=== PATIENT | male | born 1995 | race Caucasian/White ===

== ENCOUNTER 2018-09-09 15:56 | Inpatient (IN) | payer OTHER, MEDICAID ==
[~2018-09-09] VITALS: Ht 175.3 cm; Wt 76.2 kg
[2018-09-09] MEDS ORDERED: ZIPRASIDONE MESYLATE 20MG/VIAL IM ONE (17:15)
[2018-09-09 19:04] LABS: BASOPHILS % 0.1 % (0.0-2.0); HEMATOCRIT. 37.5 % (42.0-52.0); HEMOGLOBIN. 13.1 g/dL (14.0-18.0); LYMPHOCYTES % 8.1 % (20.0-50.0); MEAN CORPUSCULAR HEMOGLOBIN 31.5 pg (28.0-32.0); MEAN CORPUSCULAR VOLUME 90.3 fL (80.0-94.0); MEAN PLATELET VOLUME 7.7 fl (7.4-10.4); MONOCYTES % 7.1 % (2.0-8.0); NEUTROPHILS % 84.7 % (40.0-76.0); PLATELET 280 x1000/uL (130-400); RED BLOOD CELL COUNT 4.16 mill/uL (4.7-6.1); RED CELL DISTRIBUTION WIDTH 12.4 % (11.6-14.6)
[2018-09-09 19:10] LABS: CHLORIDE 106 mEq/L (98-107)
[2018-09-09 19:10] LABS: CLARITY URINE CLEAR (CLEAR); COLOR URINE DARK YELLOW (YELLOW); KETONES URINE 1+ (NEGATIVE); LEUKOCYTE ESTERASE URINE NEGATIVE (NEGATIVE); NITRITE URINE NEGATIVE (NEGATIVE); OCCULT BLOOD URINE NEGATIVE (NEGATIVE); PROTEIN URINE 1+ (NEGATIVE); SPECIFIC GRAVITY URINE 1.035 (1.005-1.030)
[2018-09-09 19:18] LABS: ETHANOL BLOOD < 10 mg/dL
[2018-09-09 19:18] LABS: *AMPHETAMINES SCREEN URINE NEGATIVE (NEGATIVE); *BARBITURATES SCREEN URINE NEGATIVE (NEGATIVE); *BENZODIAZEPINES SCREEN URINE NEGATIVE (NEGATIVE); *COCAINE SCREEN URINE NEGATIVE (NEGATIVE)
[2018-09-09 19:19] LABS: CANNABINOID URINE SCREEN PRESUMTIVE POSITIVE (NEGATIVE); METHADONE URINE SCREEN NEGATIVE (NEGATIVE); OPIATES URINE SCREEN NEGATIVE (NEGATIVE); PHENCYCLIDINE URINE SCREEN NEGATIVE (NEGATIVE)
[2018-09-10] MEDS ORDERED: SODIUM CHLORIDE 0.9% 1,000 ML IV ONE ×3 (01:00→04:15)
[2018-09-10] MEDS ORDERED: ACETAMINOPHEN 325MG TABLET PO ONE (01:00)
[2018-09-10] MEDS ORDERED: ACETAMINOPHEN 650MG SUPP PR ONE (02:30)
[2018-09-10] MEDS ORDERED: ACETAMINOPHEN 325MG TABLET PO PRN (09:30)
[2018-09-10 09:33] VITALS: BP 110/69
[2018-09-10] MEDS: LORAZEPAM 2MG/ML CPJ IV PRN ×2 (11:36→20:50)
[2018-09-10 12:00] VITALS: BP 109/80
[2018-09-10] MEDS: DEXT 5%/0.45% NACL 1000ML 1,000 ML IV SCH ×2 (14:27→23:29)
[2018-09-10 16:15] VITALS: BP 99/50
[2018-09-10] MEDS: LEVETIRACETAM 500 MG in SODIUM CHLORIDE 0.9% 100 ML IV SCH (17:32)
[2018-09-10 17:40] LABS: CREATINE KINASE 677 IU/L (39-308)
[2018-09-10 20:00] VITALS: BP 122/73
[2018-09-10] MEDS: ONDANSETRON HCL 4MG/2ML INJ IV PRN (23:28)
[2018-09-11] VITALS: BP 103/49
[2018-09-11 04:00] VITALS: BP 101/62
[2018-09-11] MEDS: ONDANSETRON HCL 4MG/2ML INJ IV PRN (05:48)
[2018-09-11 07:23] LABS: BASOPHILS % 0.7 % (0.0-2.0); EOSINOPHILS % 1.1 % (0.0-5.0); HEMATOCRIT. 36.5 % (42.0-52.0); LYMPHOCYTES % 35.1 % (20.0-50.0); MEAN CORPUSCULAR HEMOGLOBIN 32.4 pg (28.0-32.0); MEAN CORPUSCULAR VOLUME 91.2 fL (80.0-94.0); MEAN PLATELET VOLUME 8.2 fl (7.4-10.4); MONOCYTES % 12.5 % (2.0-8.0); NEUTROPHILS % 50.6 % (40.0-76.0); PLATELET 233 x1000/uL (130-400); RED BLOOD CELL COUNT 4.01 mill/uL (4.7-6.1); RED CELL DISTRIBUTION WIDTH 13.1 % (11.6-14.6)
[2018-09-11 07:28] LABS: CHLORIDE 109 mEq/L (98-107)
[2018-09-11 08:00] VITALS: BP 110/65
[2018-09-11] MEDS: LEVETIRACETAM 500 MG in SODIUM CHLORIDE 0.9% 100 ML IV SCH ×2 (09:05→20:51)
[2018-09-11 11:46] VITALS: BP 115/71
[2018-09-11] MEDS ORDERED: KCL 20MEQ/100ML PREMIX 100 ML IV NR (12:30)
[2018-09-11 16:04] VITALS: BP 108/66
[2018-09-11] MEDS: DEXT 5%/0.45% NACL 1000ML 1,000 ML IV SCH (18:01)
[2018-09-11 20:00] VITALS: BP 101/56
[2018-09-11] MEDS: LORAZEPAM 2MG/ML CPJ IV PRN (23:10)
[2018-09-12] VITALS: BP 109/67
[2018-09-12 04:00] VITALS: BP 105/50
[2018-09-12 05:43] LABS: BASOPHILS % 0.4 % (0.0-2.0); EOSINOPHILS % 0.7 % (0.0-5.0); HEMATOCRIT. 37.8 % (42.0-52.0); HEMOGLOBIN. 13.3 g/dL (14.0-18.0); LYMPHOCYTES % 22.6 % (20.0-50.0); MEAN CORPUSCULAR HEMOGLOBIN 31.9 pg (28.0-32.0); MEAN CORPUSCULAR VOLUME 90.5 fL (80.0-94.0); MEAN PLATELET VOLUME 7.9 fl (7.4-10.4); MONOCYTES % 8.1 % (2.0-8.0); NEUTROPHILS % 68.2 % (40.0-76.0); PLATELET 244 x1000/uL (130-400); RED BLOOD CELL COUNT 4.17 mill/uL (4.7-6.1); RED CELL DISTRIBUTION WIDTH 12.4 % (11.6-14.6)
[2018-09-12 05:50] LABS: CHLORIDE 106 mEq/L (98-107)
[2018-09-12 08:00] VITALS: BP 109/60
[2018-09-12] MEDS: LEVETIRACETAM 500 MG in SODIUM CHLORIDE 0.9% 100 ML IV SCH ×2 (09:47→22:15)
[2018-09-12 12:00] VITALS: BP 112/68
[2018-09-12 16:00] VITALS: BP 124/83
[2018-09-12] MEDS: DEXT 5%/0.45% NACL 1000ML 1,000 ML IV SCH (16:22)
[2018-09-12 20:00] VITALS: BP 120/70
[2018-09-13] VITALS: BP_SYST 118; BP_SYST 99; BP_DIAS 53; BP_DIAS 66
[2018-09-13 04:00] VITALS: BP 112/60
[2018-09-13 07:35] LABS: BASOPHILS % 0.5 % (0.0-2.0); EOSINOPHILS % 2.3 % (0.0-5.0); HEMATOCRIT. 38.5 % (42.0-52.0); HEMOGLOBIN. 13.7 g/dL (14.0-18.0); LYMPHOCYTES % 28.8 % (20.0-50.0); MEAN CORPUSCULAR HEMOGLOBIN 31.8 pg (28.0-32.0); MEAN CORPUSCULAR VOLUME 89.5 fL (80.0-94.0); MEAN PLATELET VOLUME 7.8 fl (7.4-10.4); MONOCYTES % 10.6 % (2.0-8.0); NEUTROPHILS % 57.8 % (40.0-76.0); PLATELET 254 x1000/uL (130-400); RED CELL DISTRIBUTION WIDTH 12.4 % (11.6-14.6)
[2018-09-13 08:00] VITALS: BP_SYST 11; BP_SYST 112; BP_DIAS 64
[2018-09-13] MEDS: LEVETIRACETAM 500 MG in SODIUM CHLORIDE 0.9% 100 ML IV SCH ×2 (09:09→22:33)
[2018-09-13] MEDS: DEXT 5%/0.45% NACL 1000ML 1,000 ML IV SCH ×2 (09:11→22:34)
[2018-09-13 12:00] VITALS: BP 118/71
[2018-09-13 13:00] LABS: CHLORIDE 108 mEq/L (98-107)
[2018-09-13 16:00] VITALS: BP 114/68
[2018-09-13 20:00] VITALS: BP 120/70
[2018-09-14] VITALS: BP 117/64
[2018-09-14 04:00] VITALS: BP 119/58
[2018-09-14] MEDS: DEXT 5%/0.45% NACL 1000ML 1,000 ML IV SCH ×2 (06:36→19:36)
[2018-09-14 08:00] VITALS: BP 129/83
[2018-09-14] MEDS: LEVETIRACETAM 500 MG in SODIUM CHLORIDE 0.9% 100 ML IV SCH ×2 (09:31→21:24)
[2018-09-14 12:00] VITALS: BP 137/73
[2018-09-14 16:35] VITALS: BP 145/83
[2018-09-14] MEDS ORDERED: DEXTROSE 50% WATER 50ML SYRINGE IV NR (16:45)
[2018-09-14] MEDS ORDERED: QUETIAPINE FUMARATE 25MG TABLET PO SCH (17:00)
[2018-09-14] MEDS: QUETIAPINE FUMARATE 25MG TABLET NG SCH (19:36)
[2018-09-14 20:00] VITALS: BP 138/80
[2018-09-15] VITALS (9 sets, daily range): BP systolic 115–143; BP diastolic 27–79
[2018-09-15] MEDS: DEXT 5%/0.45% NACL 1000ML 1,000 ML IV SCH ×2 (06:05→22:11)
[2018-09-15] MEDS: LEVETIRACETAM 500 MG in SODIUM CHLORIDE 0.9% 100 ML IV SCH ×2 (09:01→22:12)
[2018-09-15] MEDS: QUETIAPINE FUMARATE 25MG TABLET NG SCH ×2 (09:01→16:55)
[2018-09-15] MEDS ORDERED: LIDOCAINE HCL 1% 20ML VIAL (Pyxis) INJ ONE (12:57)
[2018-09-16] VITALS: BP 116/69
[2018-09-16 04:00] VITALS: BP 113/71
[2018-09-16] MEDS: DEXT 5%/0.45% NACL 1000ML 1,000 ML IV SCH ×3 (07:03→20:18)
[2018-09-16 08:00] VITALS: BP 114/63
[2018-09-16] MEDS: QUETIAPINE FUMARATE 25MG TABLET NG SCH ×2 (08:50→17:51)
[2018-09-16] MEDS: LEVETIRACETAM 500 MG in SODIUM CHLORIDE 0.9% 100 ML IV SCH ×2 (09:25→21:14)
[2018-09-16 12:15] VITALS: BP 120/64
[2018-09-16 16:12] VITALS: BP 121/69
[2018-09-16 20:00] VITALS: BP 136/81
[2018-09-17] VITALS (7 sets, daily range): BP systolic 104–121; BP diastolic 60–80
[2018-09-17] MEDS: DEXT 5%/0.45% NACL 1000ML 1,000 ML IV SCH ×2 (05:51→20:34)
[2018-09-17] MEDS: QUETIAPINE FUMARATE 25MG TABLET NG SCH ×2 (10:40→18:08)
[2018-09-17] MEDS: LEVETIRACETAM 500 MG in SODIUM CHLORIDE 0.9% 100 ML IV SCH ×2 (10:40→20:34)
[2018-09-17] MEDS: ONDANSETRON HCL 4MG/2ML INJ IV PRN ×2 (14:15→21:45)
[2018-09-18] VITALS: BP 112/66
[2018-09-18 04:00] VITALS: BP 121/69
[2018-09-18] MEDS: DEXT 5%/0.45% NACL 1000ML 1,000 ML IV SCH ×2 (05:54→10:45)
[2018-09-18] MEDS: QUETIAPINE FUMARATE 25MG TABLET NG SCH ×2 (09:00→18:45)
[2018-09-18] MEDS: LEVETIRACETAM 500 MG in SODIUM CHLORIDE 0.9% 100 ML IV SCH ×2 (09:50→21:46)
[2018-09-18 12:00] VITALS: BP 131/71
[2018-09-18 16:00] VITALS: BP 128/69
[2018-09-18 20:00] VITALS: BP 126/79
[2018-09-19] VITALS: BP 133/77
[2018-09-19 04:00] VITALS: BP 139/90
[2018-09-19] MEDS: ONDANSETRON HCL 4MG/2ML INJ IV PRN ×2 (05:12→09:17)
[2018-09-19] MEDS: DEXT 5%/0.45% NACL 1000ML 1,000 ML IV SCH ×3 (05:12→16:34)
[2018-09-19 06:27] LABS: BASOPHILS % 0.4 % (0.0-2.0); EOSINOPHILS % 0.9 % (0.0-5.0); HEMATOCRIT. 43.6 % (42.0-52.0); HEMOGLOBIN. 15.4 g/dL (14.0-18.0); LYMPHOCYTES % 18.9 % (20.0-50.0); MEAN CORPUSCULAR HEMOGLOBIN 31.7 pg (28.0-32.0); MEAN CORPUSCULAR VOLUME 89.8 fL (80.0-94.0); MEAN PLATELET VOLUME 7.7 fl (7.4-10.4); MONOCYTES % 9.5 % (2.0-8.0); NEUTROPHILS % 70.3 % (40.0-76.0); PLATELET 317 x1000/uL (130-400); RED BLOOD CELL COUNT 4.85 mill/uL (4.7-6.1); RED CELL DISTRIBUTION WIDTH 12.6 % (11.6-14.6)
[2018-09-19 06:44] LABS: CHLORIDE 104 mEq/L (98-107)
[2018-09-19 08:00] VITALS: BP 120/99
[2018-09-19] MEDS: LEVETIRACETAM 500 MG in SODIUM CHLORIDE 0.9% 100 ML IV SCH ×2 (09:17→21:33)
[2018-09-19] MEDS: QUETIAPINE FUMARATE 25MG TABLET NG SCH ×2 (09:17→16:34)
[2018-09-19 12:00] VITALS: BP 118/65
[2018-09-19 20:00] VITALS: BP 132/77
[2018-09-20] VITALS: BP 136/79
[2018-09-20] MEDS ORDERED: HALOPERIDOL 5MG TABLET PO PRN (03:30)
[2018-09-20] MEDS ORDERED: HALOPERIDOL LACTATE 5MG/ML VIAL IM PRN (03:45)
[2018-09-20 04:00] VITALS: BP 129/73
[2018-09-20] MEDS: DEXT 5%/0.45% NACL 1000ML 1,000 ML IV SCH ×2 (05:11→13:45)
[2018-09-20 05:26] LABS: BASOPHILS % 0.2 % (0.0-2.0); EOSINOPHILS % 0.3 % (0.0-5.0); HEMATOCRIT. 40.7 % (42.0-52.0); HEMOGLOBIN. 14.4 g/dL (14.0-18.0); LYMPHOCYTES % 9.6 % (20.0-50.0); MEAN CORPUSCULAR HEMOGLOBIN 31.7 pg (28.0-32.0); MEAN CORPUSCULAR VOLUME 89.8 fL (80.0-94.0); MEAN PLATELET VOLUME 7.9 fl (7.4-10.4); MONOCYTES % 8.9 % (2.0-8.0); PLATELET 307 x1000/uL (130-400); RED BLOOD CELL COUNT 4.54 mill/uL (4.7-6.1); RED CELL DISTRIBUTION WIDTH 12.5 % (11.6-14.6)
[2018-09-20 05:31] LABS: CHLORIDE 102 mEq/L (98-107)
[2018-09-20 08:00] VITALS: BP 125/73
[2018-09-20] MEDS ORDERED: POTASSIUM CHLORIDE 20MEQ TABLET SR PO NR (08:43)
[2018-09-20] MEDS: LEVETIRACETAM 500 MG in SODIUM CHLORIDE 0.9% 100 ML IV SCH ×3 (09:00→22:34)
[2018-09-20] MEDS: QUETIAPINE FUMARATE 25MG TABLET PO SCH ×3 (09:19→18:10)
[2018-09-20] MEDS: HALOPERIDOL LACTATE 5MG/ML VIAL IM PRN (18:10)
[2018-09-20 20:00] VITALS: BP 140/82
[2018-09-21] VITALS: BP 135/92
[2018-09-21] MEDS: DEXT 5%/0.45% NACL 1000ML 1,000 ML IV SCH ×3 (00:58→19:37)
[2018-09-21 04:00] VITALS: BP 121/81
[2018-09-21 08:00] VITALS: BP 126/80
[2018-09-21] MEDS: LEVETIRACETAM 500 MG in SODIUM CHLORIDE 0.9% 100 ML IV SCH ×2 (09:05→20:55)
[2018-09-21] MEDS: QUETIAPINE FUMARATE 25MG TABLET PO SCH ×2 (09:05→17:21)
[2018-09-21] MEDS: LORAZEPAM 2MG/ML CPJ IV PRN (10:37)
[2018-09-21 12:00] VITALS: BP 110/48
[2018-09-21 16:00] VITALS: BP 101/80
[2018-09-21 20:00] VITALS: BP 123/71
[2018-09-22 04:00] VITALS: BP 131/84
[2018-09-22] MEDS: DEXT 5%/0.45% NACL 1000ML 1,000 ML IV SCH ×2 (06:17→15:31)
[2018-09-22 08:00] VITALS: BP 128/76
[2018-09-22] MEDS: QUETIAPINE FUMARATE 25MG TABLET PO SCH (09:35)
[2018-09-22] MEDS: LEVETIRACETAM 500 MG in SODIUM CHLORIDE 0.9% 100 ML IV SCH ×2 (09:35→21:49)
[2018-09-22] MEDS: BACITRACIN 15GM TUBE TOP SCH (09:35)
[2018-09-22 12:00] VITALS: BP 134/77
[2018-09-22 16:00] VITALS: BP 142/81
[2018-09-22] MEDS: QUETIAPINE FUMARATE 50MG TABLET PO SCH (17:15)
[2018-09-22 20:00] VITALS: BP 129/73
[2018-09-23] VITALS: BP 129/69
[2018-09-23 04:00] VITALS: BP 125/73
[2018-09-23] MEDS: DEXT 5%/0.45% NACL 1000ML 1,000 ML IV SCH ×2 (04:37→11:00)
[2018-09-23 08:00] VITALS: BP 114/75
[2018-09-23] MEDS: QUETIAPINE FUMARATE 50MG TABLET PO SCH ×3 (08:38→16:20)
[2018-09-23] MEDS: BACITRACIN 15GM TUBE TOP SCH (08:39)
[2018-09-23] MEDS: LEVETIRACETAM 500 MG in SODIUM CHLORIDE 0.9% 100 ML IV SCH ×2 (08:39→20:42)
[2018-09-23 12:00] VITALS: BP 132/77
[2018-09-23 16:00] VITALS: BP 127/73
[2018-09-23 20:00] VITALS: BP 134/75
[2018-09-24] VITALS (7 sets, daily range): BP systolic 102–140; BP diastolic 59–82
[2018-09-24] MEDS: LORAZEPAM 2MG/ML CPJ IV PRN (01:47)
[2018-09-24] MEDS: DEXT 5%/0.45% NACL 1000ML 1,000 ML IV SCH ×3 (01:56→17:36)
[2018-09-24] MEDS: QUETIAPINE FUMARATE 50MG TABLET PO SCH ×2 (08:42→17:36)
[2018-09-24] MEDS: LEVETIRACETAM 500 MG in SODIUM CHLORIDE 0.9% 100 ML IV SCH ×2 (08:42→20:31)
[2018-09-24] MEDS: BACITRACIN 15GM TUBE TOP SCH (08:43)
[2018-09-25] VITALS: BP 108/70
[2018-09-25] MEDS: DEXT 5%/0.45% NACL 1000ML 1,000 ML IV SCH ×3 (03:10→21:51)
[2018-09-25] MEDS: LORAZEPAM 2MG/ML CPJ IV PRN (03:22)
[2018-09-25 04:00] VITALS: BP 113/70
[2018-09-25 08:00] VITALS: BP 101/53
[2018-09-25] MEDS: QUETIAPINE FUMARATE 50MG TABLET PO SCH ×2 (09:00→17:00)
[2018-09-25] MEDS: LEVETIRACETAM 500 MG in SODIUM CHLORIDE 0.9% 100 ML IV SCH ×2 (09:29→21:51)
[2018-09-25] MEDS: BACITRACIN 15GM TUBE TOP SCH (09:30)
[2018-09-25 12:00] VITALS: BP 116/68
[2018-09-25 16:00] VITALS: BP 123/72
[2018-09-25 20:41] VITALS: BP 113/64
[2018-09-26 00:32] VITALS: BP 116/66
[2018-09-26 04:00] VITALS: BP 126/75
[2018-09-26] MEDS: DEXT 5%/0.45% NACL 1000ML 1,000 ML IV SCH ×2 (06:52→21:22)
[2018-09-26 07:35] LABS: BASOPHILS % 0.3 % (0.0-2.0); EOSINOPHILS % 0.6 % (0.0-5.0); HEMOGLOBIN. 14.4 g/dL (14.0-18.0); LYMPHOCYTES % 21.4 % (20.0-50.0); MEAN CORPUSCULAR HEMOGLOBIN 32.1 pg (28.0-32.0); MEAN CORPUSCULAR VOLUME 89.2 fL (80.0-94.0); MEAN PLATELET VOLUME 7.3 fl (7.4-10.4); MONOCYTES % 7.1 % (2.0-8.0); NEUTROPHILS % 70.6 % (40.0-76.0); PLATELET 316 x1000/uL (130-400); RED BLOOD CELL COUNT 4.49 mill/uL (4.7-6.1); RED CELL DISTRIBUTION WIDTH 12.4 % (11.6-14.6)
[2018-09-26 07:55] LABS: CHLORIDE 101 mEq/L (98-107)
[2018-09-26 08:00] VITALS: BP 113/75
[2018-09-26] MEDS: LEVETIRACETAM 500 MG in SODIUM CHLORIDE 0.9% 100 ML IV SCH ×2 (08:41→20:58)
[2018-09-26] MEDS: BACITRACIN 15GM TUBE TOP SCH (08:41)
[2018-09-26] MEDS: QUETIAPINE FUMARATE 50MG TABLET PO SCH ×2 (08:46→17:37)
[2018-09-26 12:20] VITALS: BP 115/47
[2018-09-26 16:49] VITALS: BP 93/71
[2018-09-26] MEDS ORDERED: POTASSIUM CHLORIDE 20MEQ TABLET SR PO NR (17:00)
[2018-09-26 20:00] VITALS: BP 111/69
[2018-09-27] VITALS: BP 95/73
[2018-09-27 04:00] VITALS: BP 115/73
[2018-09-27 06:01] LABS: BASOPHILS % 0.5 % (0.0-2.0); EOSINOPHILS % 0.7 % (0.0-5.0); HEMOGLOBIN. 14.3 g/dL (14.0-18.0); MEAN CORPUSCULAR HEMOGLOBIN 31.9 pg (28.0-32.0); MEAN CORPUSCULAR VOLUME 89.4 fL (80.0-94.0); MEAN PLATELET VOLUME 7.7 fl (7.4-10.4); MONOCYTES % 6.7 % (2.0-8.0); NEUTROPHILS % 69.1 % (40.0-76.0); PLATELET 327 x1000/uL (130-400); RED BLOOD CELL COUNT 4.48 mill/uL (4.7-6.1); RED CELL DISTRIBUTION WIDTH 12.4 % (11.6-14.6)
[2018-09-27 06:47] LABS: CHLORIDE 100 mEq/L (98-107)
[2018-09-27 08:00] VITALS: BP 114/64
[2018-09-27] MEDS: QUETIAPINE FUMARATE 50MG TABLET PO SCH ×2 (10:04→17:32)
[2018-09-27] MEDS: BACITRACIN 15GM TUBE TOP SCH (10:05)
[2018-09-27] MEDS: LEVETIRACETAM 500 MG in SODIUM CHLORIDE 0.9% 100 ML IV SCH ×2 (10:05→21:16)
[2018-09-27 12:00] VITALS: BP 106/64
[2018-09-27 13:06] LABS: HIV SCREEN 4G Non Reactive (Non Reactive)
[2018-09-27 16:00] VITALS: BP 101/60
[2018-09-27] MEDS: DEXT 5%/0.45% NACL 1000ML 1,000 ML IV SCH (16:18)
[2018-09-27 20:00] VITALS: BP 114/62
[2018-09-28] VITALS: BP 108/64
[2018-09-28 04:00] VITALS: BP 114/70
[2018-09-28] MEDS: DEXT 5%/0.45% NACL 1000ML 1,000 ML IV SCH ×3 (06:59→21:28)
[2018-09-28 08:00] VITALS: BP 118/67
[2018-09-28] MEDS: BACITRACIN 15GM TUBE TOP SCH (09:45)
[2018-09-28] MEDS: QUETIAPINE FUMARATE 50MG TABLET PO SCH ×2 (09:45→18:19)
[2018-09-28] MEDS: LEVETIRACETAM 500 MG in SODIUM CHLORIDE 0.9% 100 ML IV SCH ×2 (10:25→21:52)
[2018-09-28 12:00] VITALS: BP 115/60
[2018-09-28 16:00] VITALS: BP 129/59
[2018-09-28 20:00] VITALS: BP 113/68
[2018-09-29] VITALS: BP 121/74
[2018-09-29 04:00] VITALS: BP 111/66
[2018-09-29 08:00] VITALS: BP 109/58
[2018-09-29] MEDS: QUETIAPINE FUMARATE 50MG TABLET PO SCH ×2 (08:56→17:22)
[2018-09-29] MEDS: LEVETIRACETAM 500 MG in SODIUM CHLORIDE 0.9% 100 ML IV SCH ×2 (08:57→21:57)
[2018-09-29] MEDS: BACITRACIN 15GM TUBE TOP SCH (08:57)
[2018-09-29] MEDS: DEXT 5%/0.45% NACL 1000ML 1,000 ML IV SCH ×2 (08:57→17:22)
[2018-09-29 12:00] VITALS: BP 105/46
[2018-09-29 20:00] VITALS: BP 109/66
[2018-09-29 23:57] VITALS: BP 97/56
[2018-09-30 04:00] VITALS: BP 117/67
[2018-09-30] MEDS: HALOPERIDOL LACTATE 5MG/ML VIAL IM PRN (05:22)
[2018-09-30 07:00] VITALS: BP 122/51
[2018-09-30 08:00] VITALS: BP 122/57
[2018-09-30] MEDS: BACITRACIN 15GM TUBE TOP SCH (09:14)
[2018-09-30] MEDS: LEVETIRACETAM 500 MG in SODIUM CHLORIDE 0.9% 100 ML IV SCH ×2 (09:14→22:14)
[2018-09-30] MEDS: QUETIAPINE FUMARATE 50MG TABLET PO SCH ×2 (09:14→17:49)
[2018-09-30 12:00] VITALS: BP 127/73
[2018-09-30] MEDS: DEXT 5%/0.45% NACL 1000ML 1,000 ML IV SCH ×2 (13:45→22:55)
[2018-09-30 16:00] VITALS: BP 117/82
[2018-09-30 20:00] VITALS: BP 124/76
[2018-10-01] VITALS: BP 115/60
[2018-10-01 04:00] VITALS: BP 120/77
[2018-10-01 08:00] VITALS: BP 118/72
[2018-10-01] MEDS: QUETIAPINE FUMARATE 50MG TABLET PO SCH (08:55)
[2018-10-01] MEDS: BACITRACIN 15GM TUBE TOP SCH (08:55)
[2018-10-01 10:25] LABS: BASOPHILS % 0.4 % (0.0-2.0); EOSINOPHILS % 1.4 % (0.0-5.0); HEMATOCRIT. 42.9 % (42.0-52.0); LYMPHOCYTES % 18.7 % (20.0-50.0); MEAN CORPUSCULAR HEMOGLOBIN 31.4 pg (28.0-32.0); MEAN CORPUSCULAR VOLUME 90.1 fL (80.0-94.0); MEAN PLATELET VOLUME 7.8 fl (7.4-10.4); NEUTROPHILS % 72.5 % (40.0-76.0); PLATELET 367 x1000/uL (130-400); RED BLOOD CELL COUNT 4.76 mill/uL (4.7-6.1); RED CELL DISTRIBUTION WIDTH 12.5 % (11.6-14.6)
[2018-10-01 10:35] LABS: CHLORIDE 103 mEq/L (98-107)
[2018-10-01 10:55] LABS: CLARITY URINE CLEAR (CLEAR); COLOR URINE YELLOW (YELLOW); KETONES URINE NEGATIVE (NEGATIVE); LEUKOCYTE ESTERASE URINE 2+ (NEGATIVE); NITRITE URINE NEGATIVE (NEGATIVE); OCCULT BLOOD URINE NEGATIVE (NEGATIVE); PROTEIN URINE NEGATIVE (NEGATIVE); SPECIFIC GRAVITY URINE 1.001 (1.005-1.030); UROBILINOGEN URINE 0.2 E.U./dL (0.2-1.0)
[2018-10-01] MEDS ORDERED: DEXTROSE 50% WATER 50ML SYRINGE IV PRN (11:15)
[2018-10-01 12:00] VITALS: BP 126/72
[2018-10-01 13:26] VITALS: BP 126/72
[2018-10-01] MEDS ORDERED: CEFTRIAXONE 1 G PREMIX 50 ML IV SCH (14:00)
[2018-10-01] MEDS ORDERED: BLOOD SUGAR DIAGNOSTIC STRIP TEST SCH (17:20)
== END 2018-10-01 13:55 | disposition home or self-care (01) | DRG 71 ==
LOC: ER 15:56 → 8WST 09-10 06:28 → EDBD 09-10 06:28 → ENRESERV 09-10 07:12 → 8WST 09-10 23:30 → 6EST 09-18 09:39
PROVIDERS: ADMIT Internal Medicine; ATTEND Internal Medicine
DX: G93.41 Metabolic encephalopathy (principal); M62.82 Rhabdomyolysis; G40.909 Epilepsy, unspecified, not intractable, without status epilepticus; F12.90 Cannabis use, unspecified, uncomplicated; E87.6 Hypokalemia; J32.9 Chronic sinusitis, unspecified; F99 Mental disorder, not otherwise specified; D64.9 Anemia, unspecified; D72.829 Elevated white blood cell count, unspecified; Z78.1 Physical restraint status
CPT/HCPCS: 36415; 70200; 70551; 71045; 80048; 80305; 82140; 82550; 82962; 83036; 83605; 84145; 86592; 87077; 87186; 87389; 93005; 96360; 96361; 96372; 99285; C1893; G0482; J0696; J1630; J1953; J2060; J2405; J3480; J3486; J3490; J7030; J7050; A4315